=== PATIENT | male | born 1985 | race Caucasian/White ===

== ENCOUNTER 2017-05-27 22:48 | Emergency (ER) | payer MEDICAID ==
[~2017-05-27] VITALS: Ht 182.9 cm; Wt 147.4 kg
[2017-05-27 22:58] VITALS: BP_SYST 136
[2017-05-28] MEDS ORDERED: LIDOCAINE 1% 10 MG/ML, 20 ML MDV INJ ONE
[2017-05-28 00:29] VITALS: BP_SYST 131
== END 2017-05-28 00:29 | disposition home or self-care (01) ==
LOC: SED 22:48
DX: S21.142A Puncture wound with foreign body of left front wall of thorax without penetration into thoracic cavity, initial encounter (principal); R03.0 Elevated blood-pressure reading, without diagnosis of hypertension; Z90.49 Acquired absence of other specified parts of digestive tract; W34.010A Accidental discharge of airgun, initial encounter; Y93.89 Activity, other specified; Y92.89 Other specified places as the place of occurrence of the external cause; Y99.8 Other external cause status
CPT/HCPCS: 71046-TC; 99284

== ENCOUNTER 2020-12-04 08:21 | Emergency (ER) | payer MEDICAID ==
[~2020-12-04] VITALS: Ht 182.9 cm; Wt 154.2 kg
[2020-12-04 08:21] VITALS: BP_SYST 109
--- NOTE | 2020-12-04 08:21 | NUR ---
BROUGHT IMMEDIATELY BACK TO BED #8 AND TRIAGED. REPORT GIVEN TO LUZ Lo
--- NOTE | 2020-12-04 08:30 | NUR ---
DR KLEIN AT BEDSIDE FOR EVALUATION
--- NOTE | 2020-12-04 08:30 | NUR ---
Pt brought in by family with complaints of "overdose" per family. Pt states he was taking multiple pills to help with back pain. Pt states he took Gabapentin, Zanaflex, and Doxycycline. He is unsure of how many pills were in the bottle but he said he took all of them. Perrla. pupils 3+, equal, Respirations equal and symmetrical, no respiratory distress. Pt does appear drowsy, skin is diaphoretic. Pt has no complaints of SI at this time, no hallucinations noted. All other VSS.
[2020-12-04] MEDS ORDERED: NACL 0.9% 1,000 ML IV ONE ×2 (08:45→14:00)
--- NOTE | 2020-12-04 08:48 | NUR ---
Note ree in EDM - 12/04/20 at 0857 by ARABELLA Called Poison Control at [phone] and spoke with SATHISH. Per recommendations: []. [] notified. Will continue to monitor patient.
--- NOTE | 2020-12-04 08:50 | NUR ---
Called Poison Control at [phone] and spoke with SATHISH. Per recommendations: ROUTINE LABS, NO CHARCOAL. Dr. KLEIN notified. Will continue to monitor patient.
--- NOTE | 2020-12-04 09:00 | NUR ---
# 20 gauge angiocath placed to LAC. Use of asceptic technique. Opsite placed over site. Blood return noted. Blood for lab drawn from site. Flushed with 10 cc of normal saline. No evidence of infiltration noted. Patient tolerated well.
[2020-12-04 09:08] LABS: BASOPHILS # (AUTO) 0.1 K/uL (0.0-0.2); EOSINOPHILS # (AUTO) 0.2 K/uL (0.0-0.4); EOSINOPHILS % (AUTO) 3.2 % (0.0-4.0); HEMATOCRIT 39.4 % (36-54); HEMOGLOBIN 13.3 g/dL (14.0-18.0); LYMPHOCYTES # (AUTO) 1.8 K/uL (1.0-5.5); LYMPHOCYTES % (AUTO) 24.8 % (20.5-51.5); MEAN CORPUSCULAR HEMOGLOBIN 29 pg (27-31); MEAN CORPUSCULAR HGB CONC 34 % (32-36); MEAN CORPUSCULAR VOLUME 86 fL (79.0-98.0); MONOCYTES # (AUTO) 0.9 K/uL (0.0-1.0); MONOCYTES % (AUTO) 11.7 % (1.7-9.3); NEUTROPHILS # (AUTO) 4.3 K/uL (1.8-7.7); NEUTROPHILS % (AUTO) 58.3 % (40.0-70.0); PLATELET COUNT (AUTO) 296 K/uL (130-430); RED BLOOD CELL COUNT(AUTO) 4.57 MIL/uL (4.2-6.2); RED CELL DISTRIBUTION WIDTH 14.1 % (9.0-15.0); WHITE BLOOD COUNT (AUTO) 7.4 K/uL (4.8-10.8)
--- NOTE | 2020-12-04 09:10 | NUR ---
IV fluids infusing.
[2020-12-04 09:32] LABS: ANION GAP 6 (5-15); CALCIUM 8.8 mg/dL (8.4-11.0); CHLORIDE 108 mmol/L (98-107); CREATININE 1.07 mg/dL (0.55-1.30); GLUCOSE 108 mg/dL (70-99); POTASSIUM 4.2 mmol/L (3.5-5.1); SODIUM SERUM 141 mmol/L (136-145); UREA NITROGEN, BLOOD 18 mg/dL (8-21)
[2020-12-04 09:36] LABS: INR 0.9 (0.80-1.20); PROTHROMBIN TIME 9.9 SECS (9.5-12.5)
[2020-12-04 09:38] LABS: ALANINE AMINOTRANSFERASE 34 U/L (12-78); ALBUMIN 3.2 g/dL (3.4-4.8); ASPARTATE AMINOTRANSFERASE 19 U/L (10-37); TOTAL BILIRUBIN 0.2 mg/dL (0.0-1.0)
[2020-12-04 09:43] LABS: ACETAMINOPHEN < 1 ug/mL (1-30); ALCOHOL, BLOOD < 3 mg/dL (<10); GFR AFRICAN AMERICAN 102 mL/min (>90)
--- NOTE | 2020-12-04 10:00 | NUR ---
Tele Psych at bedside.
--- NOTE | 2020-12-04 10:33 | NUR ---
Voided 650 ml dark idania color urine in urinal. Sent to lab
[2020-12-04 10:36] LABS: BILIRUBIN,URINE NEGATIVE (NEGATIVE); BLOOD, URINE NEGATIVE (NEGATIVE); CLARITY/URINE CLEAR (CLEAR); COLOR,URINE YELLOW (YELLOW); GLUCOSE,URINE NEGATIVE (NEGATIVE); KETONES,URINE NEGATIVE (NEGATIVE); LEUKOCYTE ESTERASE ,URINE NEGATIVE (NEGATIVE); NITRITE, URINE NEGATIVE (NEGATIVE); PH,URINE 6.5 (5.0-8.0); PROTEIN URINE 1+ (NEGATIVE); UROBILINOGEN,URINE 0.2 (0.2-1.0)
[2020-12-04 10:55] LABS: BARBITURATE, URINE NEGATIVE (NEG <=200); BENZODIAZEPINE, URINE NEGATIVE (NEG <=150); CANNABINOID, URINE NEGATIVE (NEG <=50); COCAINE, URINE NEGATIVE (NEG <=150); METHAMPHETAMINES SCREEN,URINE NEGATIVE (NEG <=500); OPIATE, URINE NEGATIVE (NEG <=100); PHENCYCLIDINE SCREEN,URINE NEGATIVE (NEG <=25); UR TRICYCLIC ANTIDEPRESSANTS POSITIVE (NEG <=300); URINE AMPHETAMINE NEGATIVE (NEG <=500); URINE METHADONE NEGATIVE (NEG <=200); URINE OXYCODONE SCREEN NEGATIVE (NEG <=100); URINE PROPOXYPHENE SCREEN NEGATIVE (NEG <=300)
--- NOTE | 2020-12-04 11:46 | NUR ---
Pt pulled #20g IV out. cath intact.
--- NOTE | 2020-12-04 11:46 | NUR ---
# 22 gauge angiocath placed to right hand. Use of asceptic technique. Opsite placed over site. Blood return noted. Blood for lab drawn from site. Flushed with 10 cc of normal saline. No evidence of infiltration noted. Patient tolerated well.
--- NOTE | 2020-12-04 13:49 | NUR ---
Pt moved to bed for tele-psych computer.
--- NOTE | 2020-12-04 13:49 | NUR ---
Pt ambulated to hallway in stable condition. No distress noted.
--- NOTE | 2020-12-04 16:00 | NUR ---
Pt on tele-med with psych . RN at bedside with pt.
[2020-12-04 18:51] VITALS: BP_SYST 116
--- NOTE | 2020-12-04 18:52 | NUR ---
Patient given written and verbal discharge instructions and verbalizes understanding. ER MD discussed with patient the results and treatment provided. Patient in stable condition. ID arm band removed. No Rx given. Patient educated on pain management and to follow up with PMD. Pain Scale 0/10. Opportunity for questions provided and answered. Medication side effect fact sheet provided.
== END 2020-12-04 16:00 | disposition home or self-care (01) ==
LOC: SED 08:21
DX: T42.8X1A Poisoning by antiparkinsonism drugs and other central muscle-tone depressants, accidental (unintentional), initial encounter (principal); T36.4X1A Poisoning by tetracyclines, accidental (unintentional), initial encounter; T42.6X1A Poisoning by other antiepileptic and sedative-hypnotic drugs, accidental (unintentional), initial encounter; Y92.89 Other specified places as the place of occurrence of the external cause; G89.29 Other chronic pain; M54.32 Sciatica, left side; F17.290 Nicotine dependence, other tobacco product, uncomplicated; Z79.899 Other long term (current) drug therapy
CPT/HCPCS: 36415; 71045; 80053; 80307; 81003; 84484; 85025; 85610; 85730; 93005; 96360; 99285; G0480; G0481; G0482; J7030

== ENCOUNTER 2022-12-24 11:52 | Emergency (ER) | payer MEDICAID ==
[~2022-12-24] VITALS: Ht 182.9 cm; Wt 147.4 kg
[2022-12-24 11:52] VITALS: BP_SYST 128; PULSE 104; RESP 18; TEMP 98; O2SAT 97
[2022-12-24 12:28] LABS: BASOPHILS # (AUTO) 0.1 K/uL (0.0-0.2); BASOPHILS % (AUTO) 1.1 % (0.0-2.0); EOSINOPHILS % (AUTO) 0.5 % (0.0-4.0); HEMATOCRIT 44.3 % (36-54); HEMOGLOBIN 14.8 g/dL (14.0-18.0); LYMPHOCYTES # (AUTO) 0.9 K/uL (1.0-5.5); LYMPHOCYTES % (AUTO) 13.5 % (20.5-51.5); MEAN CORPUSCULAR HEMOGLOBIN 29 pg (27-31); MEAN CORPUSCULAR HGB CONC 34 % (32-36); MEAN CORPUSCULAR VOLUME 85 fL (79.0-98.0); MONOCYTES # (AUTO) 0.5 K/uL (0.0-1.0); MONOCYTES % (AUTO) 7.3 % (1.7-9.3); NEUTROPHILS # (AUTO) 5.4 K/uL (1.8-7.7); NEUTROPHILS % (AUTO) 77.6 % (40.0-70.0); PLATELET COUNT (AUTO) 290 K/uL (130-430); RED CELL DISTRIBUTION WIDTH 14.2 % (9.0-15.0); WHITE BLOOD COUNT (AUTO) 6.9 K/uL (4.8-10.8)
[2022-12-24 12:34] LABS: ANION GAP 9 (5-15); CALCIUM 8.9 mg/dL (8.4-11.0); CARBON DIOXIDE 24 mmol/L (23-29); CHLORIDE 99 mmol/L (98-107); CREATININE 0.81 mg/dL (0.55-1.30); GFR AFRICAN AMERICAN 139 mL/min (>90); GLUCOSE 89 mg/dL (74-106); POTASSIUM 3.7 mmol/L (3.5-5.1); SODIUM SERUM 132 mmol/L (136-145); UREA NITROGEN, BLOOD 7 mg/dL (8-21)
[2022-12-24 12:38] LABS: GFR NON AFRICAN-AMERICAN 115 mL/min (>90)
[2022-12-24 12:39] LABS: PROTHROMBIN TIME 10.7 SECS (9.5-12.5)
[2022-12-24 12:58] LABS: ACETONE, SERUM NEGATIVE (NEGATIVE)
[2022-12-24 13:05] LABS: BILIRUBIN,URINE NEGATIVE (NEGATIVE); BLOOD, URINE 1+ (NEGATIVE); CLARITY/URINE Clear (CLEAR); COLOR,URINE YELLOW (YELLOW); GLUCOSE,URINE NEGATIVE (NEGATIVE); KETONES,URINE 2+ (NEGATIVE); LEUKOCYTE ESTERASE ,URINE NEGATIVE (NEGATIVE); NITRITE, URINE NEGATIVE (NEGATIVE); UROBILINOGEN,URINE 0.2 (0.2-1.0)
[2022-12-24 13:07] LABS: ALANINE AMINOTRANSFERASE 22 U/L (12-78); ALBUMIN 3.9 g/dL (3.4-4.8); AMYLASE 53 U/L (0-100); ASPARTATE AMINOTRANSFERASE 19 U/L (10-37); LIPASE 54 U/L (73-393); TOTAL BILIRUBIN 0.9 mg/dL (0.0-1.0); TOTAL PROTEIN, SERUM 8.1 g/dL (6.4-8.3)
[2022-12-24 13:09] LABS: PROTEIN URINE TRACE (NEGATIVE)
[2022-12-24 13:19] LABS: BACTERIA,URINE None Seen /HPF (None Seen); WBC,URINE NONE SEEN /HPF (0-3)
[2022-12-24 13:20] LABS: MUCUS,URINE 1+ /LPF (None Seen)
[2022-12-24] MEDS ORDERED: TRAM50TA2 PO (13:48)
[2022-12-24] MEDS ORDERED: HYDR-3927 PO (13:48)
[2022-12-24 14:11] VITALS: BP_SYST 128; PULSE 104; RESP 18; TEMP 98; O2SAT 97
== END 2022-12-24 14:10 | disposition home or self-care (01) ==
LOC: SED 11:52
DX: K62.5 Hemorrhage of anus and rectum (principal); R10.30 Lower abdominal pain, unspecified; R11.10 Vomiting, unspecified; R19.7 Diarrhea, unspecified; Z79.899 Other long term (current) drug therapy
CPT/HCPCS: 36415; 76376; 80053; 81000; 82009; 82150; 83605; 83690; 85025; 85610-TC; 85730-TC; 99284

== ENCOUNTER 2022-12-26 10:35 | Emergency (ER) | payer MEDICAID ==
[~2022-12-26] VITALS: Ht 182.9 cm; Wt 150.1 kg
[2022-12-26 10:35] VITALS: BP_SYST 156; PULSE 73; RESP 20; TEMP 97.7
[~2022-12-26 10:35] MED LIST: TRAM50TA2 PO
[2022-12-26 11:19] LABS: BASOPHILS # (AUTO) 0.1 K/uL (0.0-0.2); BASOPHILS % (AUTO) 2.3 % (0.0-2.0); EOSINOPHILS # (AUTO) 0.2 K/uL (0.0-0.4); EOSINOPHILS % (AUTO) 2.8 % (0.0-4.0); HEMATOCRIT 45.1 % (36-54); LYMPHOCYTES % (AUTO) 32.1 % (20.5-51.5); MEAN CORPUSCULAR HEMOGLOBIN 28 pg (27-31); MEAN CORPUSCULAR HGB CONC 33 % (32-36); MEAN CORPUSCULAR VOLUME 85 fL (79.0-98.0); MONOCYTES # (AUTO) 0.7 K/uL (0.0-1.0); MONOCYTES % (AUTO) 11.8 % (1.7-9.3); NEUTROPHILS # (AUTO) 3.2 K/uL (1.8-7.7); PLATELET COUNT (AUTO) 312 K/uL (130-430); RED BLOOD CELL COUNT(AUTO) 5.29 MIL/uL (4.2-6.2); RED CELL DISTRIBUTION WIDTH 14.1 % (9.0-15.0); WHITE BLOOD COUNT (AUTO) 6.2 K/uL (4.8-10.8)
[2022-12-26] MEDS ORDERED: ONDANSETRON HCL 4 MG/2 ML VIAL ONE (11:41)
[2022-12-26] MEDS ORDERED: ONDANSETRON HCL 4 MG/2 ML VIAL IVP ONE ×2 (11:45→16:30)
[2022-12-26 11:47] LABS: ANION GAP 10 (5-15); CALCIUM 9.1 mg/dL (8.4-11.0); CARBON DIOXIDE 28 mmol/L (23-29); CHLORIDE 98 mmol/L (98-107); CREATININE 0.92 mg/dL (0.55-1.30); GFR AFRICAN AMERICAN 120 mL/min (>90); GLUCOSE 91 mg/dL (74-106); POTASSIUM 3.4 mmol/L (3.5-5.1); SODIUM SERUM 136 mmol/L (136-145); UREA NITROGEN, BLOOD 8 mg/dL (8-21)
[2022-12-26 11:48] LABS: GFR NON AFRICAN-AMERICAN 99 mL/min (>90)
[2022-12-26 12:09] LABS: PROTHROMBIN TIME 10.3 SECS (9.5-12.5)
[2022-12-26 12:21] LABS: ALANINE AMINOTRANSFERASE 32 U/L (12-78); ALBUMIN 3.8 g/dL (3.4-4.8); AMYLASE 56 U/L (0-100); ASPARTATE AMINOTRANSFERASE 22 U/L (10-37); LIPASE 66 U/L (73-393); TOTAL BILIRUBIN 0.5 mg/dL (0.0-1.0); TOTAL PROTEIN, SERUM 8.6 g/dL (6.4-8.3)
[2022-12-26] MEDS ORDERED: METOCLOPRAMIDE HCL 10 MG/2 ML VIAL IVP ONE (12:30)
[2022-12-26] MEDS ORDERED: NACL 0.9% 1,000 ML IV ONE (12:30)
[2022-12-26 12:36] LABS: ACETONE, SERUM NEGATIVE (NEGATIVE)
[2022-12-26 12:58] LABS: CLARITY/URINE CLEAR (CLEAR); COLOR,URINE YELLOW (YELLOW); PH,URINE 6.5 (5.0-8.0); PROTEIN URINE 1+ (NEGATIVE)
[2022-12-26 12:59] LABS: BILIRUBIN,URINE NEGATIVE (NEGATIVE); BLOOD, URINE TRACE (NEGATIVE); GLUCOSE,URINE NEGATIVE (NEGATIVE); KETONES,URINE NEGATIVE (NEGATIVE); LEUKOCYTE ESTERASE ,URINE NEGATIVE (NEGATIVE); NITRITE, URINE NEGATIVE (NEGATIVE); UROBILINOGEN,URINE 0.2 (0.2-1.0)
[2022-12-26 13:23] LABS: BACTERIA,URINE RARE /HPF (None Seen); WBC,URINE 0-3 /HPF (0-3)
[2022-12-26 13:24] LABS: MUCUS,URINE None Seen /LPF (None Seen)
[2022-12-26] MEDS ORDERED: MECLIZINE HCL 25 MG TABLET (ANITVERT) PO ONE (16:30)
[2022-12-26 20:10] VITALS: BP_SYST 135; PULSE 88; RESP 18; TEMP 98.4; O2SAT 100
== END 2022-12-26 20:18 | disposition home or self-care (01) ==
LOC: SED 10:35
DX: K62.5 Hemorrhage of anus and rectum (principal); R11.10 Vomiting, unspecified; Z79.899 Other long term (current) drug therapy; Z20.822 Contact with and (suspected) exposure to COVID-19
CPT/HCPCS: 99285; 74177; 96374; 96361; 96375; 87426; 80053; 81000; 82009; 82150; 83690; 85025; 85610; 85730; 36415; 76376; 96376; 83605; 82397; J8597; J2765; J2405; Q9967; J7030

== ENCOUNTER 2023-09-27 21:14 | Emergency (ER) | payer MEDICAID ==
[~2023-09-27] VITALS: Ht 182.9 cm; Wt 145.1 kg
[2023-09-27 21:30] VITALS: BP_SYST 131; PULSE 121; RESP 20; TEMP 97.5; O2SAT 100
== END 2023-09-27 22:34 | disposition left against medical advice (07) ==
LOC: SED 21:14
DX: S61.211A Laceration without foreign body of left index finger without damage to nail, initial encounter (principal); Z53.21 Procedure and treatment not carried out due to patient leaving prior to being seen by health care provider; W26.0XXA Contact with knife, initial encounter; Y93.89 Activity, other specified; Y92.89 Other specified places as the place of occurrence of the external cause; Y99.8 Other external cause status